=== PATIENT | male | born 1945 | race Caucasian/White ===

== ENCOUNTER → 2022-01-26 | Outpatient (CLI) | payer MEDICARE, OTHER ==
[~2022-01-26] MED LIST: ALLOPURINOL100 MG PO; AMLODIPINE BESY10 MG PO; GABAPENTIN100 MG PO; HUMALOG; HYDROCODON-ACE1 EAC6 PO; LATANOPROST OP; LIPITOR TAB 2020 MG PO; LISINOPRIL5 MG PO; METOPROLOL SUCC50 MG PO; NAPROXEN500 MG PO; TOUJEO MAX300 UNIT/1 SQ; VITAMIN D21250 MCG PO
== END ==
LOC: OPSV2 07:59
PROVIDERS: Orthopaedic Surgery
DX: Z01.818 Encounter for other preprocedural examination (principal); G56.02 Carpal tunnel syndrome, left upper limb; I10 Essential (primary) hypertension; E78.5 Hyperlipidemia, unspecified; E11.9 Type 2 diabetes mellitus without complications
CPT/HCPCS: 71046; 80048; 83036; 93005